=== PATIENT | female | born 1950 | race Caucasian/White ===

== ENCOUNTER 2017-06-27 11:07 | Emergency (ER) | payer OTHER ==
[2017-06-27 11:16] VITALS: TEMP 98; BMI 25.7
[2017-06-27 12:39] LABS: BASO % 0.6 % (0-2.0); EOS % 0.7 % (0-4.5); HEMATOCRIT 39.6 % (32.4-45.2); HEMOGLOBIN 13.7 GM/dL (10.7-15.3); LYMPH % 26.8 % (8-40); MCH 31.4 pg (25.7-33.7); MCHC 34.6 g/dl (32.0-36.0); MEAN CELL VOLUME 90.8 fl (80-96); MEAN PLT VOLUME 8.8 fl (7.5-11.1); MONO % 11.4 % (3.8-10.2); NEUT % 60.5 % (42.8-82.8); PLATELET COUNT 292 K/MM3 (134-434); RBC 4.36 M/mm3 (3.60-5.2); RDW 12.8 % (11.6-15.6); WHITE BLOOD COUNT 7.7 K/mm3 (4.0-10.0)
[2017-06-27 13:10] LABS: ANION GAP 8 (8-16); BILIRUBIN,TOTAL 0.5 mg/dL (0.2-1.0); BLOOD UREA NITROGEN 24 mg/dL (7-18); CALCIUM 9.1 mg/dL (8.5-10.1); CHLORIDE 99 mmol/L (98-107); CO2 29 mmol/L (21-32); GLUCOSE,RANDOM 98 mg/dL (74-106); MAGNESIUM 2.1 mg/dL (1.8-2.4); POTASSIUM 3.5 mmol/L (3.5-5.1); SGOT/AST 25 U/L (15-37); SGPT/ALT 26 U/L (12-78); SODIUM 136 mmol/L (136-145); TOT PROT 7.8 g/dl (6.4-8.2)
--- NOTE | 2017-06-27 13:13 | PDOC ---
History of Present Illness <Rodri Jha - Last Filed: 06/27/17 14:16> - General History Source: Patient, Family Exam Limitations: No Limitations - History of Present Illness Initial Comments: 06/27/17 15:10 The patient is a 66 year old female with a significant PMH of HTN who presents to the emergency department with intermittent palpitations beginning in approximately March s/p medication change. The patient describes her palpitations as a strong and fast heartbeat that lasts about 1 hour per episode which have become stronger and faster within the past week, prompting her visit. Palpitations have no trigger. The patient reports being switched from Atenolol, which she has taken for the past 15 years, to Metoprolol in March due to nationwide shortage. She reports visiting Dr. Jimenez on on Wednesday and receiving an EKG which was reportedly normal and being placed on a 24-hour Holter monitor but she is unaware of its results. The patient denies chest pain or shortness of breath. She denies LOC or pre-syncopal symptoms. The patient denies headache and dizziness. Denies fever, chills, nausea, vomit, diarrhea and constipation. Denies dysuria, frequency, urgency and hematuria. Allergies: NKA Past surgical history: x2. Social history: No reported cigarette, alcohol, or drug use. PCP: Dr. Valeria Jimenez <Lion Calles - Last Filed: 06/27/17 15:11> - General Chief Complaint: Palpitations Stated Complaint: PALPITATIONS Time Seen by Provider: 06/27/17 11:51 Past History - Past Medical History COPD: No HTN: Yes - Suicide/Smoking/Psychosocial Hx Smoking History: Never smoked <Rodri Jha - Last Filed: 06/27/17 14:16> <Lion Calles - Last Filed: 06/27/17 15:11> - Past Medical History Allergies/Adverse Reactions: Allergies Allergy/AdvReac Type Severity Reaction Status Date / Time No Known Allergies Allergy Verified 06/27/17 11:16 Home Medications: Ambulatory Orders Metoprolol Tartrate 25 mg PO BID 06/27/17 Review of Systems - Review of Systems Able to Perform ROS?: Yes Comments:: 06/27/17 15:10 GENERAL/CONSTITUTIONAL: No fever or chills. No weakness. HEAD, EYES, EARS, NOSE AND THROAT: No change in vision. No ear pain or discharge. No sore throat. GASTROINTESTINAL: No nausea, vomiting, diarrhea or constipation. GENITOURINARY: No dysuria, frequency, or change in urination. CARDIOVASCULAR: (+) Palpitations. No chest pain or shortness of breath. RESPIRATORY: No cough, wheezing, or hemoptysis. MUSCULOSKELETAL: No joint or muscle swelling or pain. No neck or back pain. SKIN: No rash NEUROLOGIC: No headache, vertigo, loss of consciousness, or change in strength/ sensation. ENDOCRINE: No increased thirst. No abnormal weight change. HEMATOLOGIC/LYMPHATIC: No anemia, easy bleeding, or history of blood clots. ALLERGIC/IMMUNOLOGIC: No hives or skin allergy. <Lion Calles - Last Filed: 06/27/17 15:11> *Physical Exam - Vital Signs Last Vital Signs Temp Pulse Resp BP Pulse Ox 98 F 81 17 168/91 98 06/27/17 11:12 06/27/17 11:51 06/27/17 11:51 06/27/17 11:51 06/27/17 11:52 <Rodri Jha - Last Filed: 06/27/17 14:16> - Vital Signs Last Vital Signs Temp Pulse Resp BP Pulse Ox 98 F 81 17 168/91 98 06/27/17 11:12 06/27/17 11:51 06/27/17 11:51 06/27/17 11:51 06/27/17 11:52 - Physical Exam Comments: 06/27/17 15:10 GENERAL: Awake, alert, and fully oriented, in no acute distress HEAD: No signs of trauma EYES: PERRLA, EOMI, sclera anicteric, conjunctiva clear ENT: Auricles normal inspection, hearing grossly normal, nares patent, oropharynx clear without exudates. Moist mucosa NECK: Normal ROM, supple, no lymphadenopathy, JVD, or masses LUNGS: Breath sounds equal, clear to auscultation bilaterally. No wheezes, and no crackles HEART: Regular rate and rhythm, normal S1 and S2, no murmurs, rubs or gallops ABDOMEN: Soft, nontender, normoactive bowel sounds. No guarding, no rebound. No masses EXTREMITIES: Normal range of motion, no edema. No clubbing or cyanosis. No cords , erythema, or tenderness BACK: No midline spinal tenderness in cervical/thoracic/lumbar region NEUROLOGICAL: Normal speech, cranial nerves intact, negative pronator drift, 5/ 5 strength in all 4 extremities, normal sensation to light touch in all 4 extremities, normal cerebellar exam, normal gait, normal reflexes and tone SKIN: Warm, Dry, normal turgor, no rashes or lesions noted. <Lion Callse - Last Filed: 06/27/17 15:11> Heart Score/ECG Review #1 06/27/17 13:46 Twelve-lead EKG was performed and reviewed by me. Normal sinus rhythm, rate 93. Normal axis and intervals. No ST elevations or T-wave inversions. <Rodri Jha - Last Filed: 06/27/17 14:16> ED Treatment Course - LABORATORY CBC & Chemistry Diagram: 06/27/17 12:28 06/27/17 12:28 - ADDITIONAL ORDERS Additional order review: Laboratory Results 06/27/17 12:28 B-Natriuretic Peptide 13.07 06/27/17 12:28 RBC 4.36 MCV 90.8 MCHC 34.6 RDW 12.8 MPV 8.8 Neutrophils % 60.5 Lymphocytes % 26.8 Monocytes % 11.4 H Eosinophils % 0.7 Basophils % 0.6 - RADIOLOGY Radiology Studies Ordered: Category Date Time Status CHEST X-RAY PORTABLE* [RAD] Stat Radiology 06/27/17 12:30 Ordered <Rodri Jha - Last Filed: 06/27/17 14:16> - LABORATORY CBC & Chemistry Diagram: 06/27/17 12:28 06/27/17 12:28 - ADDITIONAL ORDERS Additional order review: Laboratory Results 06/27/17 12:28 B-Natriuretic Peptide 13.07 06/27/17 12:28 RBC 4.36 MCV 90.8 MCHC 34.6 RDW 12.8 MPV 8.8 Neutrophils % 60.5 Lymphocytes % 26.8 Monocytes % 11.4 H Eosinophils % 0.7 Basophils % 0.6 <Lion Calles - Last Filed: 06/27/17 15:11> Medical Decision Making - Medical Decision Making 06/27/17 13:27 66-year-old female with a history of hypertension presents to the emergency department with intermittent palpitations since March. Patient presented today since palpitations were a little bit stronger today. Vitals in the emergency department are unremarkable. EKG is normal sinus and nonischemic at a rate of 93. It is noted that the patient's palpitations are worse in the ED when her heart rate is btwn 90-96 and better when below 90. It's possible that the atenolol had better heart rate control thus causing the patient to be more symptomatic now that she's on metoprolol. We will obtain labs including CBC, CMP , troponin and TSH to make sure there is no other cause for the palpitations. Will also obtain a chest x-ray. Case discussed with Dr. Teague (covering for Dr. Jimenez). Dr. Teague states that there are no results yet for the Holter monitor, but possibly may be available tomorrow. She states that the patient was switched to metoprolol because there is a nation wide shortage of atenolol. I discussed my plan with Dr. Teague regarding checking blood work and x-ray and watching the patient on the cardiac cath tech. If labs, x-ray and cardiac cath tech are unrevealing, will discharge patient to follow-up with Dr. Jimenez in the office tomorrow afternoon. Plan discussed with patient who is in agreement. 06/27/17 14:00 Labs remarkable for only mildly elevated TSH, unlikely to be contributing to palpitations, silvina as patient has not been tachycardic in the ED. CXR wnl. Vitals stable throughout. All results explained to pt who requests DC and will follow up tomorrow afternoon with Dr. Jimenez. Return precautions given. I discussed the physical exam findings, ancillary test results and final diagnoses with the patient. I answered all of the patient's questions. The patient was satisfied with the care received and felt comfortable with the discharge plan and treatment plan. The patient will call their primary care physician within 24 hours to arrange follow-up and will return to the Emergency Department with any new, persistent or worsening symptoms. <Rodri Jha - Last Filed: 06/27/17 14:16> - Medical Decision Making 06/27/17 13:[address] Valderrama (covering Dr. Jimenez) regarding this patient. <Lion Calles - Last Filed: 06/27/17 15:11> *DC/Admit/Observation/Transfer - Discharge Dispostion Admit: No - Attestations Physician Attestion: 06/27/17 14:17 I, Dr. Rodri Jha MD, attest that this document has been prepared under my direction and personally reviewed by me in its entirety. I further attest, that it accurately reflects all work, treatment, procedures and medical decision -making performed by me. <Rodri Jha - Last Filed: 06/27/17 14:16> - Attestations Scribe Attestion: 06/27/17 15:10 Documentation prepared by Lion Calles, acting as medical affairs leader for Rodri Jha MD. <Lion Calles - Last Filed: 06/27/17 15:11> Diagnosis at time of Disposition: Palpitations - Discharge Dispostion Disposition: HOME Condition at time of disposition: Stable - Referrals Referrals: Richa Jimenez MD [Primary Care Provider] - - Patient Instructions Printed Discharge Instructions: DI for Palpitations Additional Instructions: As discussed, follow-up with Dr. Jimenez tomorrow afternoon. Return to the emergency department if you have any new, worsening or concerning symptoms. - Post Discharge Activity
[2017-06-27 13:19] LABS: ALK PHOS 87 U/L (45-117)
[2017-06-27 14:42] VITALS: BP 127/86; PULSE 80
--- NOTE | 2017-06-27 19:52 | EKG ---
Test Reason : Blood Pressure : / mmHG Vent. Rate : 093 BPM Atrial Rate : 093 BPM P-R Int : 162 ms QRS Dur : 084 ms QT Int : 358 ms P-R-T Axes : 068 035 061 degrees QTc Int : 445 ms NORMAL SINUS RHYTHM NORMAL ECG NO PREVIOUS ECGS AVAILABLE Confirmed by AYUSH VIVEROS MD ([id number]) on 06/27/2017 7:51:47 PM Referred By: Confirmed By:AYUSH VIVEROS MD
== END 2017-06-27 14:30 | disposition home or self-care (01) ==
LOC: JER 11:07
DX: R00.2 Palpitations (principal); I10 Essential (primary) hypertension
CPT/HCPCS: 36415; 71045-TC-FY; 80053; 83735; 83880; 84443; 84484; 85025; 93005; 93010; 99284-25